=== PATIENT | female | born 1960 | race African-American/Black ===

== ENCOUNTER → 2019-07-28 | Day surgery (SDC) | payer BC ==
--- NOTE | 2019-07-27 16:34 | HP ---
ADMIT DATE: CHIEF COMPLAINT AND HISTORY OF PRESENT ILLNESS: This patient is a 59-year-old -[place] female who is a 0, para 0, has a history of postmenopausal bleeding and was seen in the office and has an abnormal Pap smear for which she requires a cervical biopsy and she is scheduled at this time for a diagnostic D and C as well as a cervical biopsy because of postmenopausal bleeding. She is a patient of Dr. Yaz Albrecht and she is getting all her medical treatment from Dr. Albrecht's office. ALLERGIES: None known. PAST MEDICAL HISTORY: Reveals no history of any operations. PERSONAL HISTORY: No smoking. Not alcoholic. FAMILY HISTORY: Reveals she has altogether 7 siblings. Her mother has lung cancer in 1976. REVIEW OF SYSTEMS: Essentially negative. PHYSICAL EXAMINATION: VITAL SIGNS: Reveals the vital signs being stable. HEAD, EYES, NOSE, THROAT: Within normal limits. LUNGS: Clear. HEART: Sounds regular sinus rhythm. BREASTS: No masses are palpable at this time. ABDOMEN: Feels soft. PELVIC: Reveals external genitalia being normal. Cervical os is closed. On bimanual exam, uterus feels slightly bulky. No adnexal masses are palpable. No bleeding seen at the time of the examination. EXTREMITIES: No edema of feet. IMPRESSION: Postmenopausal bleeding, abnormal Pap smear. PLAN: Diagnostic D and C and cervical biopsy. MARIE BLANCO MD DR: KEN/wilber JOB#: [id number] / [id number]
[~2019-07-28] VITALS: Ht 160 cm; Wt 104.0 kg
[~2019-07-28] MED LIST: CHOL500062 PO; DEXAMETHASONE SOD PHOS 4 MG/ML VIAL ONE; FERRIC SUBSULFATE 8 ML SOL.W.APPL TP ONE; HYDROmorphone 2 MG/ML VIAL IV PRN; IV RINGERS,LACTATED 1000ML 1,000 ML IV SCH; LIDOCAINE 2% PF 5 ML VIAL. ONE; MIDAZOLAM HCL/PF 2 MG/2 ML VIAL. ONE; MORPHINE SULFATE 2 MG/ML VIAL. IV PRN; OLME1TAB21 PO; ONDANSETRON PF 4 MG/2 ML VIAL. IV PRN; ONDANSETRON PF 4 MG/2 ML VIAL. ONE; OXYTOCIN 10 UNIT/ML VIAL. ONE; PROCHLORPERAZINE 10 MG/2 ML VIAL. IV PRN; PROPOFOL 20 ML IV ONE; fentaNYL PF VIAL 100 MCG/2 ML VIAL IV PRN; fentaNYL PF VIAL 100 MCG/2 ML VIAL ONE; miSOPROStol 200 MCG TABLET ONE
[2019-07-28 09:50] LABS: BASO % 0 % (0-3); EOS # 0.1 x10^3/uL (0.0-0.7); EOS % 1 % (0-3); HEMATOCRIT 39.8 % (36.0-47.0); HEMOGLOBIN 13.2 g/dL (12.0-15.5); LYMPH # 2.8 x10^3/uL (1.0-4.8); LYMPH % 38 % (24-48); MEAN CORPUSCULAR HEMOGLOBIN 28 pg (25-35); MEAN CORPUSCULAR HGB CONC 33 g/dL (31-37); MEAN CORPUSCULAR VOLUME 85 fL (79-100); MONO # 0.5 x10^3/uL (0.0-1.1); MONO % 7 % (0-9); NEUT % 54 % (31-73); PLATELET COUNT 269 x10^3/uL (140-400); RED BLOOD COUNT 4.67 x10^6/uL (3.50-5.40); WHITE BLOOD COUNT 7.4 x10^3/uL (4.0-11.0)
--- NOTE | 2019-07-28 09:52 | PDOC ---
GENERAL General: Patient comes in for Postmenopausal Bleeding. Scheduled for D&C and Cervical Biopsy. VITAL SIGNS Vital Signs/I&O: Vital Signs Date Time Temp Pulse Resp B/P (MAP) Pulse Ox O2 Delivery O2 Flow Rate FiO2 07/28/19 09:02 97.3 65 16 131/69 98 Room Air 97.3 ALLERGIES Allergies: Allergies Coded Allergies Type Severity Reaction Last Updated Verified No Known Drug Allergies 07/26/19 No ASSESSMENT & PLAN A&P Under GA D&C and Cervical Biopsy done. EBL 8cc. MARIE BLANCO MD Jul 28, 2019 09:52
--- NOTE | 2019-07-28 10:08 | OP ---
DATE OF SURGERY: 07/28/2019 PREOPERATIVE DIAGNOSIS: Postmenopausal bleeding, abnormal Pap smear. POSTOPERATIVE DIAGNOSIS: Postmenopausal bleeding, abnormal Pap smear. OPERATION PERFORMED: Diagnostic dilation and curettage and cervical biopsy. DESCRIPTION OF PROCEDURE: The patient was taken to the operating room under general anesthesia. She was placed in a dorsal lithotomy position. Perineum was prepped and draped in the usual manner. Weighted speculum inserted in the posterior vaginal wall. Anterior lip of the cervix held with a tenaculum. Visualization of the cervix was done and punch biopsy of the cervix was done first and the specimen sent to the lab. After this, uterine sound is used to measure the length of the uterine cavity, which appears to be about 8 cm. Cervix was dilated first and a medium-sized curette was used to curette the endometrial cavity. All the curettings obtained were subjected for pathological examination. At the end of the curettage, speculum, tenaculum is removed and Monsel solution applied over the area of the punch biopsy on the cervix. After this, the patient was sent to the recovery room in good condition. No complications encountered at the time of the procedure. Estimated blood loss about 8 mL. Postoperative condition is stable. She will be followed in the office in 2 weeks for further care and treatment. MARIE BLANCO MD DR: KEN/wilber JOB#: [id number] / [id number]
[2019-07-28 10:30] VITALS: BP 138/84
--- NOTE | 2019-07-29 18:06 | PATHOLOGY ---
[facility] Accession Number: [id number] . 01 Material submitted: . PART A: endometrium - ENDOMETRIAL CURETTINGS PART B: cervix - CERVICAL BIOPSY . 01 Clinical history: . abnormal pap smear . 02 Diagnosis: A. Endometrial curettings: - Blood and mucus containing strips of benign inactive/weakly proliferative endometrial surface epithelium and fragmented endometrial glands, few small segments of stroma and lower uterine segment, and few minute segments of benign squamous epithelium. . B. Cervical biopsy: - Chronic cervicitis. . (JPM:iris; 07/29/2019) [facility] 07/29/2019 1716 Local . 02 Comment: The endometrial curettings show no evidence of hyperplasia or malignancy. . The uterine cervical biopsy appears to consist of exocervix. The squamocolumnar junction is not present. There is chronic inflammation. Squamous epithelial maturation appears normal and multi line claims adjuster. There is no dysplasia or evidence of malignancy. . (JPM:iris; 07/29/2019) . 02 Electronically signed: . Cain Jett MD, Pathologist NPI- [id number] . 01 Gross description: . A. The specimen is received in formalin, labeled "Matilda Jones", "endometrial curettings". Received are multiple segments of dark red-carmona hemorrhagic tissue measuring 1.8 x 1.5 x 0.2 cm in aggregate dimensions. The specimen is filtered and entirely submitted in cassette A1. . B. The specimen is received in formalin, labeled "Matilda Jones", "cervical biopsy". Received is a single segment of pale carmona soft tissue measuring 0.4 cm. The specimen is entirely submitted in cassette B1.(SNA; 07/28/2019) [facility] 07/28/2019 1658 Local . 02 Pathologist provided ICD-10: N85.9, N72 . 02 CPT . 001956, [id number] Specimen Comment: A courtesy copy of this report has been sent to [phone], [phone] Specimen Comment: [id number] Specimen Comment: Report sent to / DR VILLALTA Performed at: [address] [facility], [place] [id number] MD Noé Singh MD Phone: [phone] [facility]formed at: [facility] [address] [place], [place] [id number] MD Cain Jett MD Phone: [phone]
== END ==
LOC: SURG 07:58
PROVIDERS: ATTEND Obstetrics & Gynecology
DX: N95.0 Postmenopausal bleeding (principal); N72 Inflammatory disease of cervix uteri; I10 Essential (primary) hypertension; E66.9 Obesity, unspecified; Z68.39 Body mass index [BMI] 39.0-39.9, adult; Z87.891 Personal history of nicotine dependence
CPT/HCPCS: 36415; 58558; 85025; A7015; J0696; J1100; J2001; J2250; J2405; J2704; J3010; 88305; J2590